=== PATIENT | male | born 1995 | race Caucasian/White ===

== ENCOUNTER 2025-02-26 08:00 | Emergency (ER) | payer OTHER ==
[~2025-02-26] VITALS: Ht 182.9 cm; Wt 95.0 kg
[2025-02-26 08:33] VITALS: TEMP 98.6
[2025-02-26] MEDS: ACETAMINOPHEN 500 MG TABLET PO ONE (08:39)
[2025-02-26] MEDS: IBUPROFEN 600 MG TABLET PO ONE (08:39)
[2025-02-26 09:08] VITALS: BP 123/75; PULSE 70; RESP 16; O2SAT 98
== END 2025-02-26 09:13 ==
LOC: EMS 08:00
DX: S93.401A Sprain of unspecified ligament of right ankle, initial encounter (principal); W19.XXXA Unspecified fall, initial encounter; Y93.89 Activity, other specified; Y92.89 Other specified places as the place of occurrence of the external cause; Y99.8 Other external cause status
CPT/HCPCS: 99283